=== PATIENT | male | born 1965 | race Caucasian/White ===

== ENCOUNTER 2025-03-14 18:54 | Emergency (ER) | payer MEDICAID ==
[~2025-03-14] VITALS: Ht 182.9 cm; Wt 93.1 kg
[2025-03-14 19:14] VITALS: TEMP 98.6
[2025-03-14 19:50] LABS: MEAN PLATELET VOLUME 9.3 FL (7.4-10.4); RED CELL DISTRIBUTION WIDTH 13.3 % (11.5-14.5)
--- NOTE | 2025-03-14 19:55 | RADIOLOGY REPORT ---
CLINICAL HISTORY: headache TECHNIQUE: Helical imaging carried out from skull base to vertex without intravenous contrast. This exam was performed according to our departmental dose optimization program. Up-to-date CT equipment and radiation dose reduction techniques are utilized as appropriate. CTDIVol: 62.57 mGy DLP: 1149.01 mGy-cm WID: COMPARISON: None FINDINGS: Bilateral frontal approach deep brain stimulator leads which terminate in the subthalamic region bilaterally. The ventricles and subarachnoid spaces are normal in size and configuration. There is no midline shift or mass effect. The mendez white matter interfaces are maintained. The basal cisterns are patent. There is no evidence of acute intracranial hemorrhage or extra-axial fluid collection. The mastoid air cells and visualized paranasal sinuses are well-aerated. IMPRESSION: 1. No acute intracranial abnormality.
[2025-03-14 20:05] LABS: CREATININE 0.82 MG/DL (0.60-1.10); TOTAL CARBON DIOXIDE 30.0 MMOL/L (24-32); eCRCL 106 ML/MIN; eGFR > 90 ML/MIN
--- NOTE | 2025-03-14 21:42 | Physician Documentation ---
History of Present Illness ~ Chief Complaint: Headache Stated Complaint: HEADACHE Time Seen by MD: 21:28 Mode of Arrival: POV HPI Patient presents to the emergency room for evaluation of headache. Patient has history of headaches ever since he had a brain stimulator for Parkinson's disease installed a proximally five weeks ago. States normally managed with ibuprofen and Tylenol but this one is not. Distant history of trigeminal neuralgia. Denies fevers or vomiting. Positive nausea. Bladder and bowel reported to be normal. Headache has been traveling from the front of his head to the back of his head to the side of his head. Medication Reconciliation Allergies: Coded Allergies: No Known Allergies (Unverified , 03/14/25) Review of Systems ROS All review of systems negative except as per HPI Physical Exam Vital Signs: Temperature: 98.6, Source: Temporal, Heart Rate: 82, Respiratory Rate: 16, BP: 173/119, Pulse Oximetry: 99, Weight: 93.100 Physical Exam General: Patient is awake, alert, oriented x4 in no acute distress. Resting tremor Head: Normocephalic and atraumatic. No tenderness to palpation to temporal arteries. Scars from neurostimulator appear without infection Eyes: Conjunctival normal. EOMI. PERRL. ENT: Mucous membranes moist. Neck: Supple, trachea is midline. Chest: Clear to auscultation bilaterally without rales, rhonchi, or wheezes. There is no accessory muscle use or retractions. Cardiac: RRR without murmurs, gallops, or rubs. Progress Results/Orders Results/Orders Vital Signs 03/14/25 03/14/25 03/14/25 19:14 21:10 21:12 Temp 98.6 Pulse 83 82 Resp 15 18 16 B/P (MAP) 183/98 173/119 (137) Pulse Ox 99 99 Laboratory Tests Test 03/14/25 19:34 White Blood Count 6.6 Red Blood Count 4.70 Hemoglobin 14.5 Hematocrit 43.0 Mean Corpuscular Volume 91.4 Mean Corpuscular Hemoglobin 30.8 Mean Corpuscular Hemoglobin Concent 33.7 Red Cell Distribution Width 13.3 Platelet Count 238 Mean Platelet Volume 9.3 Neutrophils (%) (Auto) 55.2 Lymphocytes (%) (Auto) 29.8 Monocytes (%) (Auto) 9.8 Eosinophils (%) (Auto) 3.8 Basophils (%) (Auto) 1.4 H Neutrophils # (Auto) 3.6 Lymphocytes # (Auto) 2.0 Monocytes # (Auto) 0.6 Eosinophils # (Auto) 0.3 Basophils # (Auto) 0.1 CBC Comment Sodium Level 141 Potassium Level 3.9 Chloride Level 105 Carbon Dioxide Level 30.0 Anion Gap 6 L Blood Urea Nitrogen 11 Creatinine 0.82 Estimated GFR/1.73 m2 > 90 BUN/Creatinine Ratio 13.4 Glucose Level 97 Calcium Level 8.7 Total Bilirubin 0.4 Aspartate Amino Transf (AST/SGOT) 20 Alanine Aminotransferase (ALT/SGPT) 22 Alkaline Phosphatase 71 Total Protein 7.7 Albumin 4.1 Globulin 3.6 Albumin/Globulin Ratio 1.1 Chemistry Comments Medical Decision Making Additional information obtaine: N/A Findings Patient presents to the emergency room for evaluation of headache as per HPI. Differentials include but are not limited to tension headache, migraine headache, meningitis, intracranial infection therefore emergent labs and imaging indicated which were reassuring. Patient is responding to headache treatment. I do not feel patient requires an MRI or lumbar puncture Differential Dx:Considerations: Include: HEAD-Cluster, HEAD-Migraine, HEAD- Hypertensive, HEAD-Muscular contraction, HEAD-Post lumbar puncture, Carbon monoxide toxicity, Close head injuyr, CVA, Fever induced, Hemorrhage-Epidural, Hemorrhage-Intracerebral, Hemorrhage-Subarachnoid, Hemorrhage-Subdural, Mass lesion, Meningitis, Post-traumtic, Pseudotumor cerebri, Sinusitis, Temporal arteritis, Trigeminal neuralgia, Other Departure Disposition: 01 HOME / SELF CARE / HOMELESS Impression: Primary Impression: Headache Condition: Improved Discharge Instructions: Headache Referrals: NO PRIMARY CARE PROVIDER (PCP) Signature Scribe Signature: No scribe Attestation: The note accurately reflects work and decisions made by me.Bandar Navas MD 03/14/25 21:42 BANDAR NAVAS MD Mar 14, 2025 21:42
[2025-03-14] MEDS: normal saline 1000ml 1,000 ML IV ONE (22:04)
[2025-03-14] MEDS: ketorolac trometh 15mg/ml vial 15 MG/ML ML IV ONE (22:04)
[2025-03-14] MEDS: acetaminophen 1,000mg/100ml IV 100 ML IV ONE (22:04)
[2025-03-14] MEDS: metoclopramide 5 mg/ml inj IV ONE (22:04)
[2025-03-14 22:49] VITALS: BP 142/68; PULSE 84; RESP 16; O2SAT 99
== END 2025-03-14 22:51 | disposition home or self-care (01) ==
LOC: ER 18:55
DX: R51.9 Headache, unspecified (principal)
CPT/HCPCS: 36415; 70450; 80053; 85025; 96361; 96374; 96375; 99285; J0131; J1885; J2765; J7030